=== PATIENT | male | born 1975 | race Asian ===

== ENCOUNTER 2019-02-18 00:13 | Emergency (ER) | payer BC ==
[2019-02-18 00:39] LABS: #Basophils 0.1 thou/uL (0.0-0.2); #Eosinphils 0.5 thou/uL (0.0-0.7); #Monocytes 0.6 thou/uL (0.11-0.59); #Neutrophils 4.9 thou/uL (1.40-6.50); %Eosinophils 5.2 % (0.0-10.0); %Lymphocytes 39.2 % (21.0-51.0); %Monocytes 6.3 % (0.0-10.0); %Neutrophils 48.3 % (42.0-75.0); Hemoglobin 13.1 g/dL (14.0-18.0); Mean Corpuscular HGB CONC 33.1 g/dL (32.0-36.0); Mean Corpuscular Hemoglobin 33.2 pg (27.0-31.0); Mean Platelet Volume 8.8 fL (7.4-10.4); Platelet Count 157 thou/uL (130-400); RBC Distribution Width 13.1 % (11.5-14.5); Red Blood Cell (RBC) Count 3.95 mill/uL (4.70-6.10); White Blood Cell (WBC) Count 10.1 thou/uL (4.8-10.8)
[2019-02-18 00:59] LABS: ALT (SGPT) 36 U/L (8-55); AST (SGOT) 45 U/L (5-34); Albumin 2.6 g/dL (3.5-5.0); Alkaline Phosphatase 320 U/L (40-150); Anion Gap 10 mmol/L (10-20); BUN (Urea Nitrogen) 7 mg/dL (8.9-20.6); Bilirubin, Total 0.8 mg/dL (0.2-1.2); Calc. Creatinine Clearance 0 mL/min (70-130); Calcium 8.4 mg/dL (7.8-10.44); Carbon Dioxide 22 mmol/L (22-29); Chloride 106 mmol/L (98-107); Estimated GFR-MDRD Greater than 90; Glucose 264 mg/dL (70-105); Protein, Total 7.6 g/dL (6.0-8.3); Sodium 134 mmol/L (136-145)
--- NOTE | 2019-02-18 07:40 | RAD ---
EXAM: Single view of the chest HISTORY: Chest pain COMPARISON: None FINDINGS: Single view of the chest shows a normal sized cardiomediastinal silhouette. There is a fantasma y subtle opacity projecting over the right upper lobe which may represent an infiltrate. There is no evidence of pleural effusion. The bones are unremarkable. IMPRESSION: Right upper lobe infiltrate
--- NOTE | 2019-02-21 12:08 | EKG ---
Test Reason : Blood Pressure : / mmHG Vent. Rate : 061 BPM Atrial Rate : 061 BPM P-R Int : 180 ms QRS Dur : 092 ms QT Int : 440 ms P-R-T Axes : 031 035 026 degrees QTc Int : 442 ms Normal sinus rhythm Normal ECG Confirmed by KWADWO SOMMERS DO ([id number]), fan mail editor MERLE GRANADOS ([id number]) on 02/21/2019 12:07:53 PM Referred By: Confirmed By:KWADWO SOMMERS DO
== END 2019-02-18 02:19 | disposition home or self-care (01) ==
LOC: ERS 00:13
DX: J20.9 Acute bronchitis, unspecified (principal); Z79.899 Other long term (current) drug therapy
CPT/HCPCS: 36415; 71045; 80053; 84484; 85025; 93005; 94640; J7620

== ENCOUNTER 2020-06-08 07:57 | Outpatient (CLI) | payer BC ==
--- NOTE | 2020-06-08 08:41 | ULT ---
Hepatic sonogram with duplex evaluation HISTORY: Cirrhosis. FINDINGS: Gallbladder has a normal appearance. Echogenic folds project into the lumen. Common duct is 0.4 cm. Liver unremarkable without focal mass or intrahepatic biliary dilatation. No free fluid. Spleen upper limits of normal in size at 11.7 cm. Good color and spectral Doppler flow within the hepatic and splenic arteries. Portal venous flow is t owards the liver. Hepatic venous flow towards the IVC. IMPRESSION : No abnormalities are demonstrated. No findings of portal venous hypertension.
== END 2020-06-08 07:58 | disposition home or self-care (01) ==
LOC: SCSULT 07:57
PROVIDERS: ATTEND Physician Assistant Medical
DX: I85.00 Esophageal varices without bleeding (principal); B18.2 Chronic viral hepatitis C; K74.60 Unspecified cirrhosis of liver
CPT/HCPCS: 76705